=== PATIENT | male | born 1965 | race Caucasian/White ===

== ENCOUNTER 2019-09-11 13:50 | Inpatient (IN) | payer OTHER ==
[~2019-09-11 13:50] MED LIST: Calcium Chloride 1 GM/10 ML Abboject SYRINGE ONE; Cardioplegic Soln 1,000 ML BAG ONE; Dextrose 50% Abboject 50 ML SYRINGE ONE; Heparin 30,000 units/30 ml VIAL ONE; Heparin 5,000 UNITS/ML VIAL ONE; Iopamidol 370 76% 100 ML VIAL ONE; Lidocaine 1% PF 5 ML VIAL ONE; Norepinephrine 4 MG/4 ML VIAL ONE; PHENYLEPHRINE-NS 100 MCG/ML 10 ML SYRINGE ONE; PROPOFOL 200 MG/20 ML VIAL ONE; Papaverine 60 MG/2 ML VIAL ONE; Protamine Sulfate 50 MG/5 ML VIAL ONE; Rocuronium Bromide 10 MG/ML (10ML VIAL) ONE; Sodium Bicarb 50 MEQ/50 ML Abboject 8.4% SYRINGE ONE; Succinylcholine Chloride 20 MG/ML 10 ml SYRINGE FS ONE; Thrombin 5000 UNITS/5 ML VIAL ONE
[2019-09-11 14:11] LABS: #Basophils 0.1 thou/uL (0.0-0.2); #Eosinphils 0.1 thou/uL (0.0-0.7); #Lymphocytes 2.9 thou/uL (1.20-3.40); #Monocytes 1.7 thou/uL (0.11-0.59); #Neutrophils 9.7 thou/uL (1.40-6.50); %Basophils 0.7 % (0.0-1.0); %Eosinophils 0.5 % (0.0-10.0); %Lymphocytes 20.1 % (21.0-51.0); %Monocytes 11.7 % (0.0-10.0); Hemoglobin 14.9 g/dL (14.0-18.0); Mean Corpuscular Hemoglobin 30.5 pg (27.0-31.0); Mean Corpuscular Volume 92.5 fL (78.0-98.0); Mean Platelet Volume 10.1 fL (7.4-10.4); Platelet Count 195 thou/uL (130-400); RBC Distribution Width 12.8 % (11.5-14.5); Red Blood Cell (RBC) Count 4.87 mill/uL (4.70-6.10); White Blood Cell (WBC) Count 14.5 thou/uL (4.8-10.8)
[2019-09-11] MEDS ORDERED: Midazolam HCl 2 mg/2 ml Vial ONE ×2 (14:17→15:05)
[2019-09-11 14:18] LABS: INR-International Normal Ratio 1.3; Prothrombin Time 15.9 SEC (12.0-14.7)
[2019-09-11] MEDS ORDERED: Fentanyl 100 MCG/2 ML VIAL ONE ×2 (14:18→15:05)
--- NOTE | 2019-09-11 14:18 | RAD ---
Exam: Chest one view HISTORY:Chest pain Comparison: None FINDINGS: Cardiac silhouette: Normal Aorta: Unremarkable Pulmonary vessels: Normal Costophrenic angles: Clear LUNGS: Obscuration right heart border and right hemidiaphragm. Pneumothorax: None Osseous abnormalities: None IMPRESSION: 1. Obscuration the heart border and right hemidiaphragm likely representing a cardiac fat. Better int errogation with a 2 view chest radiograph is recommended
[2019-09-11 14:19] LABS: PTT 71.7 SEC (22.9-36.1)
[2019-09-11 14:32] LABS: ALT (SGPT) 26 U/L (8-55); AST (SGOT) 42 U/L (5-34); Albumin 3.6 g/dL (3.5-5.0); Alkaline Phosphatase 137 U/L (40-110); Anion Gap 15 mmol/L (10-20); BUN (Urea Nitrogen) 17 mg/dL (8.4-25.7); Bilirubin, Total 1.4 mg/dL (0.2-1.2); CK (CPK) 422 U/L (30-200); Calc. Creatinine Clearance 0 mL/min (70-130); Calcium 9.2 mg/dL (7.8-10.44); Carbon Dioxide 22 mmol/L (22-29); Chloride 103 mmol/L (98-107); Estimated GFR-MDRD 69; Globulin 3.1 g/dL (2.4-3.5); Glucose 106 mg/dL (70-105); Lipase 67 U/L (8-78); Potassium 3.8 mmol/L (3.5-5.1); Protein, Total 6.7 g/dL (6.0-8.3); Sodium 136 mmol/L (136-145)
[2019-09-11] MEDS ORDERED: DOPamine 400 MG/D5W 250 ML 250 ML ONE (14:40)
[2019-09-11] MEDS ORDERED: Albumin 5% 500 ML ONE (14:47)
[2019-09-11] MEDS ORDERED: Fentanyl 250 MCG/5 ML VIAL ONE (14:52)
[2019-09-11] MEDS ORDERED: Midazolam HCl 5 mg/5 ml Vial ONE ×2 (14:52→15:05)
[2019-09-11] MEDS ORDERED: Nitroglycerin 50 MG/250 ML BOT 250 ML ONE (14:53)
[2019-09-11] MEDS ORDERED: Famotidine/PF 20 mg/2ml Vial ONE (14:53)
[2019-09-11] MEDS ORDERED: Phenylephrine 10 MG/ML VIAL ONE (14:53)
[2019-09-11] MEDS ORDERED: Heparin 10,000 UNITS/1 ML VIAL ONE (15:00)
[2019-09-11 15:04] LABS: CKMB 7.4 ng/mL (0-6.6)
[2019-09-11] MEDS ORDERED: Dexmedetomidine 200 MCG/2 ML VIAL ONE (15:06)
[2019-09-11] MEDS ORDERED: Vecuronium 10 MG VIAL ONE (15:06)
--- NOTE | 2019-09-11 15:17 | HP ---
HISTORY OF PRESENT ILLNESS: Jaime Oropeza is a 54-year-old white male, who began to have onset of chest discomfort on 09/06. This lasted approximately 1 to 1-1/2 hours and was described as chest pressure with some radiation to the right arm and numbness in his left arm. This was accompanied by shortness of breath, diaphoresis, nausea , and vomiting. He then had 2-1/2 hours of discomfort on 09/07. On 09/08, he had approximately an hour. Yesterday, on 09/09, he states he really did not have much pain, and then today at 9:00 a.m., again had onset of the discomfort and has been continuous since that time. He went to [facility], and was found to have EKG changes, consistent with inferior STEMI. He was given aspirin and a bolus of heparin, started on heparin drip, sublingual nitroglycerin and nitroglycerin paste. He states that his discomfort has significantly improved, but is still present. PAST MEDICAL HISTORY: Hypertension and hypercholesterolemia. He states he was on medications for these in the past, but his physician moved and he has not taken any for a year. No history of diabetes. MEDICATIONS: None. ALLERGIES: NONE. 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 SOCIAL HISTORY: He smokes 1 pack per day. He does not drink alcohol. FAMILY HISTORY: Mother of myocardial infarction at age 42. Brothers had CABG and sister has had stent placement. REVIEW OF SYSTEMS: Otherwise unremarkable. PHYSICAL EXAMINATION: VITAL SIGNS: Blood pressure 132/80 and pulse of 60. HEENT: PERRL. NECK: Supple. CHEST: Clear. CARDIAC: S1 and S2 are normal without any S3, S4, or murmurs. Carotid upstrokes normal without bruits. ABDOMEN: Normal bowel sounds without tenderness or organomegaly. EXTREMITIES: No clubbing, cyanosis, or edema. NEUROLOGIC: Grossly intact. SKIN: Warm and dry. LABORATORY DATA: EKG reveals Q-waves in II, III, and F along with [address]-segment elevation. There is some downsloping of the ST segments in I and L. Lab work is pending. IMPRESSION: 1. Inferior ST elevation myocardial infarction. He does have Q-waves present, I imagine that he has probably had a stuttering infarction over the last 4 or 5 days. However, he continues to have chest pain at this time. 2. Hypertension, untreated. 3. Hypercholesterolemia, untreated. 4. Smoker. 5. Positive family history. 6. Status post nephrectomy, used for transplant in his sister. PLAN: The situation was discussed with the patient. It is recommended that he undergo emergent cardiac catheterization. Risks were discussed including , myocardial infarction, dye reaction, vascular injury, CVA, transfusion, limb loss, renal loss, etc. We also discussed stent placement with additional risk of , myocardial infarction, emergent CABG, restenosis, stent thrombosis, vessel perforation, etc. He has no history of gastrointestinal bleeding or stroke. He does not have any upcoming surgeries, and a drug-eluting stent will be placed if needed. He does state that he has a drug plan. Job ID: [id number] MTDD
--- NOTE | 2019-09-11 15:27 | CON ---
DATE OF CONSULTATION: HISTORY OF PRESENT ILLNESS: This is a 54-year-old gentleman with multiple medical problems and noncompliance with medications, who presented with a 3-day history of left scapular pain, arm pain, shoulder pain, and the chest pain. The patient initially thought it was related to something he ate 3 days ago, but the pain has persisted. Due to numbness in his left hand, he presented to an outlying emergency room today, where he was found to have ST-elevation inferior DE and transferred to [facility], where his initial troponin was 22, and his cardiac catheterization revealed extensive three-vessel disease. He has severe disease in LAD, diagonal, ramus, circumflex system prior to 2 small obtuse marginals and his right coronary artery is occluded at the ostium, filling faintly from [id number] collaterals with PDA filling in its midportion and a posterolateral filling faintly. His left ventricular systolic function is diminished with inferior akinesis. PAST MEDICAL HISTORY: Includes hypertension, not currently on medicines; dyslipidemia, not currently on medicines. He has no diabetes mellitus. SOCIAL HISTORY: He smokes a pack of cigarettes a day. ALLERGIES: NONE KNOWN. PAST SURGICAL HISTORY: Left inguinal hernia repair and donor nephrectomy. PHYSICAL EXAMINATION: GENERAL: He is alert and cooperative gentleman, overweight. No distress at this time. NECK: No carotid bruits. LUNGS: Clear to auscultation anteriorly. CARDIAC: Regular rate and rhythm. No murmurs. ABDOMEN: Obese and nontender. EXTREMITIES: He has a sheath in the right groin. Palpable left femoral and dorsalis pedis pulse and no palpable pedal pulses on the right. Cardiac catheterization with the above findings as well as a high-grade left common iliac artery stenosis with about a 50-mm pressure gradient across this. Potential targets include the LAD, ramus, OM something on the right and perhaps some circumflex vessels, although these vessels are not very large and I suspect, given the patient's weight and untreated hypertension that access to bypassable vessels may be poor on the circumflex despite the fact that it is 90% occluded in both branches. Plan at this time is for coronary artery bypass grafting emergently and informed consent has been obtained. Job ID: [id number]
[2019-09-11 16:10] LABS: Hemoglobin A1c 5.4 % (4.0-6.0)
[2019-09-11 16:22] LABS: Cardiac Risk 6.6 (Less than 4.5)
[2019-09-11] MEDS ORDERED: Bisacodyl 10 MG SUPP PR PRN (19:41)
[2019-09-11] MEDS ORDERED: Hetastarch 6% 500 ML 500 ML IVPB PRN (19:41)
[2019-09-11] MEDS ORDERED: Bisacodyl 5 MG TAB PO PRN (19:41)
[2019-09-11] MEDS ORDERED: niCARdipine 25 MG in Sodium Chloride 0.9% 250 ML 250 ML IVPB PRN (19:41)
[2019-09-11] MEDS ORDERED: Ondansetron PF 4 MG/2 ML Vial IVP PRN (19:41)
[2019-09-11] MEDS ORDERED: DOPamine 400 MG/D5W 250 ML 250 ML IVPB PRN (19:41)
[2019-09-11] MEDS ORDERED: Post-Op Insulin Drip Protocol IVPB ONE (19:41)
[2019-09-11] MEDS ORDERED: hydrALAZINE 20 MG/ML VIAL SLOW IVP PRN (19:41)
[2019-09-11] MEDS ORDERED: HYDROcodone/Acetaminophen 5/325 mg Tablet PO PRN (19:41)
[2019-09-11] MEDS ORDERED: Guaifenesin DM 100-10/5 ML UDCUP PO PRN (19:41)
[2019-09-11] MEDS ORDERED: Morphine 2 MG/ML SYRINGE SLOW IVP PRN ×2 (19:41→19:54)
[2019-09-11] MEDS ORDERED: Promethazine HCl 25 MG/ML VIAL IM PRN (19:41)
[2019-09-11] MEDS ORDERED: Nitroglycerin 50 MG/250 ML BOT 250 ML IVPB PRN (19:41)
[2019-09-11] MEDS ORDERED: Acetaminophen 325 MG TAB PO PRN (19:41)
[2019-09-11] MEDS ORDERED: Mag-Al 1200 mg/1200 mg/30 ML UDCUP PO PRN (19:41)
[2019-09-11] MEDS ORDERED: Fentanyl 100 MCG/2 ML VIAL SLOW IVP PRN ×2 (19:41)
[2019-09-11] MEDS ORDERED: Magnesium 2 GM/50 ML 2 GM in Premix Bag 1 BAG IVPB SCH (19:45)
[2019-09-11] MEDS ORDERED: Ventilator Sedation Protocol 1 EACH FS SCH (19:45)
[2019-09-11] MEDS ORDERED: Lorazepam 2 MG/ML VIAL SLOW IVP PRN (19:54)
[2019-09-11] MEDS ORDERED: Fentanyl BOLUS 250 ML IVPB PRN (19:54)
[2019-09-11] MEDS ORDERED: Propofol 1,000 MG/100 ML VIAL IV PRN (19:54)
[2019-09-11] MEDS ORDERED: Propofol BOLUS 1,000 MG/100 ML VIAL IV PRN (19:54)
[2019-09-11] MEDS ORDERED: DISCONTINUE PREVIOUS NARCOTIC PAIN MEDICATIONS AND BENZODIAZEPINES FS SCH (19:54)
[2019-09-11] MEDS ORDERED: Dextrose 5% in Water 1,000 ML IV PRN (19:55)
[2019-09-11] MEDS ORDERED: HUMULIN R 100 UNITS in Sodium Chloride 0.9% 100 ML IVPB SCH (19:55)
[2019-09-11] MEDS ORDERED: Dextrose 50% Abboject 50 ML SYRINGE SLOW IVP PRN (19:55)
[2019-09-11 20:01] LABS: Base Excess (BEa) -6.9 mEq/L (-2.0 to +3.0); CO2 Tension 39.4 mmHg (35.0-45.0); Calcium, Ionized 1.06 mmol/L (1.12-1.30); Carboxyhemoglobin (COHb) 2.2 gm% (0.0-3.0); Hemoglobin (Hb) 13.5 g/dL (14.0-18.0); O2 Tension (PaO2), arterial 147.5 mmHg (80.0-100.0); Potassium - ABG Lab 4.34 mmol/L (3.70-5.30)
[2019-09-11 20:10] LABS: Puncture Site ALINE
[2019-09-11] MEDS ORDERED: Sodium Bicarb 50 MEQ/50 ML Abboject 8.4% SYRINGE ONE (20:16)
[2019-09-11 20:26] LABS: INR-International Normal Ratio 1.4; PTT 24.7 SEC (22.9-36.1); Prothrombin Time 17.1 SEC (12.0-14.7)
[2019-09-11] MEDS: fentaNYL Citrate/PF 2,000 MCG in Sodium Chloride 0.9% 60 ML IV SCH (20:28)
--- NOTE | 2019-09-11 20:29 | RAD ---
PORTABLE CHEST: 09/11/19 INDICATIONS: Postop sternotomy. ET tube appears adequately positioned. Postop sternotomy changes are noted. Central line appears adeq uately positioned. Lungs appear clear of infiltrate. Vascular markings normal. IMPRESSION: Postop sternotomy. No acute lung process identified. POS: [facility]
[2019-09-11] MEDS: Famotidine/PF 20 mg/2ml Vial SLOW IVP SCH (20:33)
[2019-09-11] MEDS: Lactated Ringer's 1,000 ML IV SCH (20:33)
[2019-09-11 20:35] LABS: Anion Gap 15 mmol/L (10-20); BUN (Urea Nitrogen) 19 mg/dL (8.4-25.7); Calc. Creatinine Clearance 0 mL/min (70-130); Calcium 8.1 mg/dL (7.8-10.44); Carbon Dioxide 20 mmol/L (22-29); Chloride 108 mmol/L (98-107); Estimated GFR-MDRD 73; Glucose 149 mg/dL (70-105); Potassium 4.5 mmol/L (3.5-5.1); Sodium 138 mmol/L (136-145)
[2019-09-11] MEDS: Atorvastatin Calcium 10 MG TAB PO SCH (20:40)
[2019-09-11 20:41] LABS: Band 16 % (5-11); Hemoglobin 13.2 g/dL (14.0-18.0); Lymphocytes 10 % (21-51); MDiff Complete? YES; Mean Corpuscular HGB CONC 31.5 g/dL (32.0-36.0); Mean Corpuscular Hemoglobin 29.7 pg (27.0-31.0); Mean Corpuscular Volume 94.2 fL (78.0-98.0); Mean Platelet Volume 10.2 fL (7.4-10.4); Monocytes 5 % (0-10); Neutrophil 69 % (42-75); Platelet Count 181 thou/uL (130-400); Platelet Morphology Comment Appears Adequate; RBC Distribution Width 12.7 % (11.5-14.5); Red Blood Cell (RBC) Count 4.44 mill/uL (4.70-6.10); White Blood Cell (WBC) Count 31.9 thou/uL (4.8-10.8)
[2019-09-11] MEDS: Insulin Regular 300 UNITS/3 ML VIAL SC PRN (21:08)
[2019-09-11] MEDS: CEFAZOLIN 2 GM in Premix Bag 1 BAG IVPB SCH (21:11)
[2019-09-11] MEDS: Norepinephrine 8 MG/0.9% NS 250 ML IVPB PRN (21:12)
[2019-09-12] MEDS: Insulin Regular 300 UNITS/3 ML VIAL SC PRN ×5 (00:10→20:24)
[2019-09-12 03:43] LABS: Hemoglobin 14.3 g/dL (14.0-18.0)
[2019-09-12 03:59] LABS: Potassium 4.6 mmol/L (3.5-5.1)
[2019-09-12] MEDS: CEFAZOLIN 2 GM in Premix Bag 1 BAG IVPB SCH ×2 (06:07→14:30)
[2019-09-12 06:22] LABS: #Lymphocytes 2.2 thou/uL (1.20-3.40); #Monocytes 2.2 thou/uL (0.11-0.59); %Basophils 0.2 % (0.0-1.0); %Eosinophils 0.2 % (0.0-10.0); %Lymphocytes 10.4 % (21.0-51.0); %Monocytes 10.3 % (0.0-10.0); %Neutrophils 78.9 % (42.0-75.0); Hemoglobin 14.2 g/dL (14.0-18.0); Mean Corpuscular HGB CONC 31.8 g/dL (32.0-36.0); Mean Corpuscular Hemoglobin 29.8 pg (27.0-31.0); Mean Corpuscular Volume 93.6 fL (78.0-98.0); Mean Platelet Volume 10.4 fL (7.4-10.4); Platelet Count 188 thou/uL (130-400); RBC Distribution Width 12.9 % (11.5-14.5); Red Blood Cell (RBC) Count 4.77 mill/uL (4.70-6.10); White Blood Cell (WBC) Count 21.6 thou/uL (4.8-10.8)
--- NOTE | 2019-09-12 06:29 | OP ---
DATE OF PROCEDURE: 09/11/2019 PREOPERATIVE DIAGNOSIS: Inferior myocardial infarction. POSTOPERATIVE DIAGNOSIS: Inferior myocardial infarction. PROCEDURES PERFORMED: Coronary artery bypass graft x5 with left internal mammary artery to a 2 mm distal left anterior descending, saphenous vein good quality to a 1.5 mm diagonal, 1.25 to 1.5 mm ramus. Two obtuse marginal branches too small to graft. Right posterior lateral 1 mm right PDA 1.5 mm with thrombus in this vessel. DEPUTY CHIEF SHERIFF: Dr. Cisneros. TRANSFUSION: None. FINDINGS: The patient had infarcted inferior wall grossly on inspection with pallor interspersed with red areas. Vessels were all poor quality except for the diagonal in the LAD and not a reoperative candidate. DESCRIPTION OF PROCEDURE: After adequate anesthesia had been obtained, the patient was prepped and draped. An endovascular vein harvest of the left greater saphenous vein was started by Dr. Cisneros; however, this vessel was felt to be too small to utilize, an incision was made in the groin, dissected down for about 6 inches at which point, the vein became too small to accept the cannula. Right greater saphenous vein was then opened, harvested, and was a better quality vein. Following this, the wounds were closed in layers by Dr. Cisneros. I performed a median sternotomy harvesting the left internal mammary artery, which was divided distally after heparinization. Large thymus gland was removed to allow access into the mediastinum. Pericardium was opened. Aorta and right atrium cannulated and cardiopulmonary bypass begun. Aorta was cross-clamped and after a liter of cold [place] cardioplegic solution, the distal anastomosis were all performed. Cross-clamp was removed and the partial occluding clamp was placed and the ramus and the PDA vein grafts were performed on the aortic root. Following this, a partial occluding clamp was removed. The diagonal vein graft anastomosed to the side of the ramus vein graft about 2 cm from the aortic root and then the posterior lateral vein graft anastomosed to the PDA vein graft at the acute margin of the heart. Temporary atrial and ventricular pacing wires were placed and the patient was atrially paced. He was slowly weaned from cardiopulmonary bypass on moderate to high doses of Levophed with poor left ventricular systolic function on transesophageal echo. Following this, protamine was given systemically. Aortic cannulation site secured with a 4-0 Prolene suture. Mediastinal drains x2 were placed following which the sternum was reapproximated with #7 interrupted wire using vancomycin paste on the sternal edges, platelet rich blood and platelet poor plasma. Subcutaneous tissue and skin were closed in layers and the patient is to be taken to the ICU in critical condition. Job ID: [id number]
[2019-09-12 06:41] LABS: Anion Gap 13 mmol/L (10-20); BUN (Urea Nitrogen) 19 mg/dL (8.4-25.7); Calc. Creatinine Clearance 107 mL/min (70-130); Calcium 7.7 mg/dL (7.8-10.44); Carbon Dioxide 22 mmol/L (22-29); Chloride 111 mmol/L (98-107); Estimated GFR-MDRD 70; Glucose 151 mg/dL (70-105); Potassium 4.7 mmol/L (3.5-5.1); Sodium 141 mmol/L (136-145)
--- NOTE | 2019-09-12 08:37 | PRG ---
DATE OF SERVICE: 09/12/2019 SUBJECTIVE: The patient is now postoperative day #1 from emergency multivessel grafting. He remains on the ventilator with O2 sats about 95% on 40% O2. His chest x-ray shows right upper lobe mucous plugging probably. His hemoglobin is 13. His creatinine is 1.1. OBJECTIVE: GENERAL: He is resting comfortably on sedation, fentanyl and propofol, but is wide awake when questioned. VITAL SIGNS: His blood pressure is running about 110 on nitroglycerin. His CVP is 12. Urine output has been 50-60 an hour and he does have a solitary kidney. His chest tube output is minimal. PLAN: We will ask Pulmonary to see him this morning in regard to his right upper lobe mucous plugging and consideration may be given extubation later today. We will maintain his drugs as he is stable with this regimen Job ID: [id number]
--- NOTE | 2019-09-12 08:55 | RAD ---
CHEST 1 VIEW: INDICATION: History of open heart surgery. COMPARISON: Prior exam dated 09/11/2019. FINDINGS: Since the comparison examination, there is interval increased opacification of the right upper lobe s uspicious for right upper lobe collapse. Cardiomegaly persists. Right subclavian vascular congestio n, mediastinal drain, and ET tube is unchanged. Small right pleural effusion persists. No definite pneumothorax is evident. The left lung is clear. IMPRESSION: 1. Worsening opacity in the right upper lobe suspicious for partial right upper lobe collapse. Anup mmend consideration for suctioning. Recommend repeat radiograph. 2. Persistent small right pleural effusion. 3. Stable cardiomegaly. 4. Stable tubes and lines. POS: [facility]
[2019-09-12] MEDS: fentaNYL Citrate/PF 2,000 MCG in Sodium Chloride 0.9% 60 ML IV SCH (08:58)
[2019-09-12] MEDS: Famotidine/PF 20 mg/2ml Vial SLOW IVP SCH ×2 (09:26→21:06)
[2019-09-12] MEDS: Aspirin 325 MG TAB PO SCH (09:26)
[2019-09-12] MEDS: Lactated Ringer's 1,000 ML IV SCH (09:29)
[2019-09-12 09:35] LABS: Troponin I 26.168 ng/mL (< 0.028)
--- NOTE | 2019-09-12 14:26 | EKG ---
Test Reason : CP-STEMI Blood Pressure : / mmHG Vent. Rate : 089 BPM Atrial Rate : 089 BPM P-R Int : 146 ms QRS Dur : 090 ms QT Int : 348 ms P-R-T Axes : 058 018 077 degrees QTc Int : 423 ms Sinus rhythm with occasional Premature ventricular complexes Inferior infarct , possibly acute ACUTE CA / STEMI Consider right ventricular involvement in acute inferior infarct Abnormal ECG Confirmed by MARCOS AVALOS DO ([id number]), tape editor JAYCEE JOSEPH ([id number]) on 09/12/2019 2:25:28 PM Referred By: Confirmed By:MARCOS AVALOS DO
[2019-09-12] MEDS: Norepinephrine 8 MG/0.9% NS 250 ML IVPB PRN (15:51)
[2019-09-12] MEDS: HYDROcodone/Acetaminophen 5/325 mg Tablet PO PRN (19:37)
--- NOTE | 2019-09-12 20:55 | CON ---
DATE OF CONSULTATION: 09/12/2019 HISTORY OF PRESENT ILLNESS: Mr. Oropeza is a 54-year-old male, who underwent coronary artery bypass grafting. He had left upper lobe atelectasis on his chest radiograph, so I was consulted. He is mechanically ventilated after surgery. PAST MEDICAL HISTORY: Remarkable for: 1. Hypertension, not taking medicines. 2. Tobacco, smoking a pack a day. 3. History of an inguinal hernia repair. 4. History of nephrectomy as a kidney donor. REVIEW OF SYSTEMS: Otherwise, not obtainable since he is intubated. PHYSICAL EXAMINATION: VITAL SIGNS: Heart rate 79, blood pressure 141/78, respiratory rate 25, and blood pressure 126/69. HEAD AND NECK: Unremarkable. GENERAL: He is awake, moving all of his extremities to command. LUNGS: Clear. HEART: Regular rhythm. S1, S2 are normal. ABDOMEN: Soft and nontender. EXTREMITIES: Without clubbing, cyanosis, or edema. LABORATORY DATA: White count 21.6, hemoglobin 14.2, and platelets 188. Electrolytes are unremarkable. Glucoses have been in the 140s to 150s. PH after surgery last night 7.3. CO2 of 39, and PO2 of 147. IMPRESSION: 1. Status post coronary artery bypass grafting. 2. ?Mucus plug in the right upper lobe. PLAN: Fiberoptic bronchoscopy and extubation afterwards. This is a 70 min consult with greater than 50% of the time spent on the unit with coordination of care excluding any procedures. Job ID: [id number] MTDD
[2019-09-12] MEDS: Atorvastatin Calcium 10 MG TAB PO SCH (21:06)
[2019-09-13] MEDS: Insulin Regular 300 UNITS/3 ML VIAL SC PRN (00:25)
[2019-09-13 04:34] LABS: #Basophils 0.1 thou/uL (0.0-0.2); #Lymphocytes 2.4 thou/uL (1.20-3.40); #Monocytes 1.9 thou/uL (0.11-0.59); #Neutrophils 11.4 thou/uL (1.40-6.50); %Basophils 0.4 % (0.0-1.0); %Eosinophils 0.2 % (0.0-10.0); %Lymphocytes 15.5 % (21.0-51.0); %Monocytes 11.7 % (0.0-10.0); %Neutrophils 72.2 % (42.0-75.0); Hemoglobin 12.5 g/dL (14.0-18.0); Mean Corpuscular HGB CONC 32.1 g/dL (32.0-36.0); Mean Corpuscular Hemoglobin 30.4 pg (27.0-31.0); Mean Corpuscular Volume 94.7 fL (78.0-98.0); Mean Platelet Volume 10.3 fL (7.4-10.4); Platelet Count 151 thou/uL (130-400); Red Blood Cell (RBC) Count 4.12 mill/uL (4.70-6.10); White Blood Cell (WBC) Count 15.8 thou/uL (4.8-10.8)
[2019-09-13 04:55] LABS: Anion Gap 10 mmol/L (10-20); BUN (Urea Nitrogen) 18 mg/dL (8.4-25.7); Calc. Creatinine Clearance 118 mL/min (70-130); Calcium 8.2 mg/dL (7.8-10.44); Carbon Dioxide 26 mmol/L (22-29); Chloride 107 mmol/L (98-107); Estimated GFR-MDRD 79; Glucose 131 mg/dL (70-105); Potassium 4.4 mmol/L (3.5-5.1); Sodium 139 mmol/L (136-145)
[2019-09-13 05:02] LABS: Critical Call Chem Troponin I RESULT DECREASING; Troponin I 17.665 ng/mL (< 0.028)
--- NOTE | 2019-09-13 08:04 | RAD ---
RADIOGRAPH CHEST 1 VIEW: DATE: 09/13/2019 TIME: 5:50 AM HISTORY: 54-year-old male status post open heart surgery COMPARISON: 09/12/2019 4:27 AM FINDINGS: The right upper lobe atelectasis has resolved. The right apex is now clear. Right subclavian central venous catheter remains. Endotracheal tube is no longer visualized. No pulmonary edema. No pneumothorax identified. IMPRESSION: 1. Interval resolution of right upper lobe atelectasis. 2. Status post extubation.
[2019-09-13] MEDS: Aspirin 325 MG TAB PO SCH (08:12)
[2019-09-13] MEDS: HYDROcodone/Acetaminophen 5/325 mg Tablet PO PRN ×2 (08:12→13:12)
[2019-09-13] MEDS: Lactated Ringer's 1,000 ML IV SCH (08:14)
[2019-09-13] MEDS: Famotidine/PF 20 mg/2ml Vial SLOW IVP SCH (08:14)
[2019-09-13] MEDS ORDERED: Prevnar 13-Val Conj/PF 0.5 ML SYRINGE IM ONE (09:00)
--- NOTE | 2019-09-13 10:54 | PDOC.CPN ---
- Subjective Date: 09/13/19 Time: 10:52 Interval history: No complaints. Pain well controlled. Went into afib but rate controlled mid morning. - Review of Systems General: denies: fever/chills, weight/appetite/sleep changes, night sweats, fatigue Respiratory: denies: cough, congestion, shortness of breath, exercise intolerance Cardiovascular: denies: chest pain, palpitation, edema, paroxysmal nocturnal dyspnea, orthopnea Gastrointestinal: denies: nausea, vomiting, diarrhea, constipation, abd pain, GI bleeding Musculoskeletal: denies: pain, tenderness, stiffness, swelling, arthritis/ arthralgias Neurological: denies: numbness, syncope, seizure, weakness - Objective Allergies/Adverse Reactions: Allergies Allergy/AdvReac Type Severity Reaction Status Date / Time No Known Allergies Allergy Verified 09/11/19 20:56 Visit Medications: Current Medications Acetaminophen (Tylenol) 650 mg PO Q6H PRN PRN Reason: Headache/Fever/Mild Pain (1-3) Hydrocodone Bitart/Acetaminophen ([place] 5/325) 1 tab PO Q4H PRN PRN Reason: Moderate Pain (4-6) Hydrocodone Bitart/Acetaminophen ([place] 5/325) 2 tab PO Q4H PRN PRN Reason: Severe Pain (7-10) Last Admin: 09/13/19 08:12 Dose: 2 tab Al Hydroxide/Mg Hydroxide (Maalox) 30 ml PO Q4H PRN PRN Reason: Indigestion Albuterol/Ipratropium (Duoneb) 3 ml NEB [id number] [facility] Last Admin: 09/13/19 06:56 Dose: 3 ml Albuterol/Ipratropium (Duoneb) 3 ml NEB Q6H PRN PRN Reason: SHORTNESS OF BREATH Aspirin (Aspirin) 325 mg PO DAILY [facility] Last Admin: 09/13/19 08:12 Dose: 325 mg Atorvastatin Calcium (Lipitor) 40 mg PO HS [facility] Bisacodyl (Dulcolax) 10 mg PO Q12H PRN PRN Reason: Constipation Bisacodyl (Dulcolax) 10 mg MT Q12H PRN PRN Reason: Constipation Carvedilol (Coreg) 3.125 mg PO BID-[facility] Fentanyl (Sublimaze) 25 mcg SLOW IVP Q2H PRN PRN Reason: Moderate Pain (4-6) Stop: 09/13/19 19:31 Fentanyl (Sublimaze) 50 mcg SLOW IVP Q2H PRN PRN Reason: Severe Pain (7-10) Stop: 09/13/19 19:31 Guaifenesin/Dextromethorphan (Robitussin Dm) 15 ml PO Q4H PRN PRN Reason: Cough Hydralazine HCl (Apresoline) 10 mg SLOW IVP Q6H PRN PRN Reason: To Maintain SBP< 140mmHG Fentanyl Citrate 2,000 mcg/ (Sodium Chloride) 100 mls @ 0 mls/hr IV INF [facility]; Protocol Stop: 10/11/19 19:54 Last Admin: 09/12/19 08:58 Dose: 100 mls Fentanyl Citrate (Fentanyl Bolus) 250 mls @ 0 mls/hr IVPB PRN PRN PRN Reason: Breakthrough pain/agitation Stop: 10/11/19 19:54 Amiodarone HCl 450 mg/Miscellaneous Medication 1 each/ Dextrose/Water 259 mls @ 0 mls/hr IVPB INF [facility]; Protocol Discontinue Previous Narcotic Pain Medications And Benzodiazepines 1 each FS .ONE [facility] Stop: 10/11/19 19:54 Ondansetron HCl (Zofran) 4 mg IVP Q6H PRN PRN Reason: Nausea/Vomiting Pantoprazole Sodium (Protonix) 40 mg PO DAILY [facility] Promethazine HCl (Phenergan) 6.25 mg IM Q4H PRN PRN Reason: Nausea/Vomiting Vital Signs & Weight: Vital Signs Temp Pulse Resp Pulse Ox 09/13/19 08:00 99.3 F 09/13/19 06:58 93 L 09/13/19 06:56 93 28 H 93 L 09/13/19 01:04 89 20 91 L 09/13/19 00:00 97.9 F Admit Weight 216 lb Weight 221 lb 12.56 oz - Physical Exam General: alert & oriented x3 HEENT: mucus membranes moist Neck: supple neck Cardiac: irregularly regular Lungs: normal breath sounds Neuro: no lateralizing findings Abdomen: active bowel sounds Extremities: 1+ LE edema Skin: clear Musculoskeletal: no pain - Labs Result Diagrams: 09/13/19 04:24 09/13/19 04:24 Troponin/CKMB CK-MB (CK-2) 7.4 ng/mL (0-6.6) H* 09/11/19 13:56 Troponin I 17.665 ng/mL (< 0.028) H* 09/13/19 04:24 - Telemetry Supraventricular conduction: atrial fibrillation - Assessment/Plan Assessment/Plan: 1. Acute NC 2. Multivessel CAD 3. S/P CABG 4. Post op afib PLAN: - Will start amiodarone drip - Currently rate controlled - Continue ASA/statin and low dose coreg - ACEI tomorrow if BP allows. - PT as tolerated.
[2019-09-13] MEDS: Amiodarone 450 MG, Admixture Fee 1 EACH in Dextrose 5% in Water 250 ML IVPB SCH ×2 (11:00→17:42)
--- NOTE | 2019-09-13 12:34 | PRG ---
DATE OF SERVICE: 09/13/2019 SUBJECTIVE: Jaime Oropeza has no complaints except some numbness over the lateral aspect of his right thigh. I suspect this is related to the softness of the bed and his referred discomfort from his back. He has no discomfort in the area of his vein graft sites medially. OBJECTIVE: GENERAL: He is in no distress. VITAL SIGNS: Heart rate is in the 70s, blood pressure 101/64, respiratory rate 22, oximetry is 92. LUNGS: Clear. HEART: Regular rhythm. ABDOMEN: Soft. EXTREMITIES: Without edema. IMPRESSION AND PLAN: 1. Status post coronary artery bypass grafting. 2. Right thigh numbness, ? related to nerve compression in his low back. 3. Status post bronchoscopy for right upper lobe atelectasis, resolved on today's radiograph. We will continue to follow. He is clinically stable. Job ID: [id number]
[2019-09-13] MEDS: Carvedilol 3.125 MG TAB PO SCH (13:17)
[2019-09-13] MEDS: Atorvastatin Calcium 10 MG TAB PO SCH (20:17)
[2019-09-14 04:38] LABS: Anion Gap 11 mmol/L (10-20); BUN (Urea Nitrogen) 17 mg/dL (8.4-25.7); Calc. Creatinine Clearance 134 mL/min (70-130); Calcium 8.4 mg/dL (7.8-10.44); Carbon Dioxide 26 mmol/L (22-29); Chloride 101 mmol/L (98-107); Estimated GFR-MDRD 88; Glucose 105 mg/dL (70-105); Potassium 4.3 mmol/L (3.5-5.1); Sodium 134 mmol/L (136-145)
--- NOTE | 2019-09-14 05:13 | OP ---
DATE OF PROCEDURE: 09/12/2019 PROCEDURE: Fiberoptic bronchoscopy. DESCRIPTION OF PROCEDURE: The patient was sedated with propofol. Bronchoscope was introduced via the endotracheal tube. Clear mucus was seen at the end of the endotracheal tube. The right lower lobe, right middle lobe, right upper lobe, left lower lobe, and left upper lobe were all well visualized. No endobronchial lesions were seen. No mucus plugs were identified. Once he awakened, recommended extubation after the procedure. He tolerated the procedure well. Job ID: [id number]
[2019-09-14] MEDS ORDERED: Carvedilol 6.25 MG TAB PO SCH (09:00)
[2019-09-14] MEDS ORDERED: Zolpidem Tartrate 5 MG TAB PO PRN (09:35)
[2019-09-14] MEDS ORDERED: Bisacodyl 5 MG TAB PO PRN (09:35)
[2019-09-14] MEDS ORDERED: Mag-Al 1200 mg/1200 mg/30 ML UDCUP PO PRN (09:35)
[2019-09-14] MEDS ORDERED: Artificial Tears 18 DROP/0.9 ML EA EYE PRN (09:35)
[2019-09-14] MEDS ORDERED: Milk Of Magnesia 30 ML UDCUP PO PRN (09:35)
[2019-09-14] MEDS ORDERED: Guaifenesin DM 100-10/5 ML UDCUP PO PRN (09:35)
[2019-09-14] MEDS ORDERED: Nitroglycerin 0.4 MG TAB (25 Tab Bottle) SL PRN (09:35)
[2019-09-14] MEDS ORDERED: diphenhydrAMINE 25 MG CAP PO PRN (09:35)
[2019-09-14] MEDS ORDERED: Mineral Oil ENEMA PR PRN (09:35)
[2019-09-14] MEDS ORDERED: Bisacodyl 10 MG SUPP PR PRN (09:35)
[2019-09-14] MEDS ORDERED: Furosemide 40 MG TAB PO SCH (09:45)
[2019-09-14] MEDS: HYDROcodone/Acetaminophen 5/325 mg Tablet PO PRN (09:53)
[2019-09-14] MEDS: Aspirin 325 MG TAB PO SCH (09:55)
[2019-09-14] MEDS: Amiodarone 450 MG, Admixture Fee 1 EACH in Dextrose 5% in Water 250 ML IVPB SCH (09:57)
--- NOTE | 2019-09-14 10:26 | PDOC.CPN ---
- Subjective Date: 09/14/19 Time: 10:24 Interval history: Doing well. Working with PT. Passing gas but no BM yet. - Review of Systems General: denies: fever/chills, weight/appetite/sleep changes, night sweats, fatigue Respiratory: denies: cough, congestion, shortness of breath, exercise intolerance Cardiovascular: reports: edema. denies: chest pain, palpitation, paroxysmal nocturnal dyspnea, orthopnea Gastrointestinal: denies: nausea, vomiting, diarrhea, constipation, abd pain, GI bleeding Musculoskeletal: reports: pain. denies: tenderness, stiffness, swelling, arthritis/arthralgias Neurological: denies: numbness, syncope, seizure, weakness - Objective Allergies/Adverse Reactions: Allergies Allergy/AdvReac Type Severity Reaction Status Date / Time No Known Allergies Allergy Verified 09/11/19 20:56 Visit Medications: Current Medications Acetaminophen (Tylenol) 650 mg PO Q6H PRN PRN Reason: Headache/Fever/Mild Pain (1-3) Hydrocodone Bitart/Acetaminophen ([place] 5/325) 1 tab PO Q4H PRN PRN Reason: Moderate Pain (4-6) Last Admin: 09/13/19 21:58 Dose: 1 tab Hydrocodone Bitart/Acetaminophen ([place] 5/325) 2 tab PO Q4H PRN PRN Reason: Severe Pain (7-10) Last Admin: 09/14/19 09:53 Dose: 2 tab Al Hydroxide/Mg Hydroxide (Maalox) 30 ml PO Q4H PRN PRN Reason: Indigestion Albuterol/Ipratropium (Duoneb) 3 ml NEB [id number] Last Admin: 09/14/19 07:19 Dose: 3 ml Albuterol/Ipratropium (Duoneb) 3 ml NEB Q6H PRN PRN Reason: SHORTNESS OF BREATH Artificial Tears (Tears Naturale) 1 drop EA EYE PRN PRN PRN Reason: Dry Eyes Aspirin (Aspirin) 325 mg PO DAILY [facility] Last Admin: 09/14/19 09:55 Dose: 325 mg Atorvastatin Calcium (Lipitor) 40 mg PO HS [facility] Last Admin: 09/13/19 20:17 Dose: 40 mg Bisacodyl (Dulcolax) 10 mg PO Q12H PRN PRN Reason: Constipation Bisacodyl (Dulcolax) 10 mg PA Q12H PRN PRN Reason: Constipation Carvedilol (Coreg) 6.25 mg PO BID-WM [facility] Carvedilol (Coreg) 6.25 mg PO NOW [facility] Stop: 09/14/19 12:00 Last Admin: 09/14/19 09:54 Dose: 6.25 mg Diphenhydramine HCl (Benadryl) 25 mg PO Q6H PRN PRN Reason: Itching & Insomnia or Jaswinder Travis Furosemide (Lasix) 40 mg PO DAILY [facility] Furosemide (Lasix) 40 mg PO NOW [facility] Stop: 09/14/19 11:45 Last Admin: 09/14/19 09:59 Dose: 40 mg Guaifenesin/Dextromethorphan (Robitussin Dm) 15 ml PO Q4H PRN PRN Reason: Cough Hydralazine HCl (Apresoline) 10 mg SLOW IVP Q6H PRN PRN Reason: To Maintain SBP< 140mmHG Fentanyl Citrate 2,000 mcg/ (Sodium Chloride) 100 mls @ 0 mls/hr IV INF [facility]; Protocol Stop: 10/11/19 19:54 Last Admin: 09/12/19 08:58 Dose: 100 mls Fentanyl Citrate (Fentanyl Bolus) 250 mls @ 0 mls/hr IVPB PRN PRN PRN Reason: Breakthrough pain/agitation Stop: 10/11/19 19:54 Amiodarone HCl 450 mg/Miscellaneous Medication 1 each/ Dextrose/Water 259 mls @ 0 mls/hr IVPB INF [facility]; Protocol Last Admin: 09/14/19 09:57 Dose: 259 mls Magnesium Hydroxide (Milk Of Magnesium) 30 ml PO Q12H PRN PRN Reason: Constipation Mineral Oil (Fleet Mineral Oil) 133 ml PA DAILYPRN PRN PRN Reason: Constipation Nitroglycerin (Nitrostat) 0.4 mg SL Q5MIN PRN PRN Reason: Chest Pain Discontinue Previous Narcotic Pain Medications And Benzodiazepines 1 each FS .ONE [facility] Stop: 10/11/19 19:54 Ondansetron HCl (Zofran) 4 mg IVP Q6H PRN PRN Reason: Nausea/Vomiting Pantoprazole Sodium (Protonix) 40 mg PO DAILY [facility] Last Admin: 09/14/19 09:55 Dose: 40 mg Potassium Chloride (Klor-Con 10) 10 meq PO QAM-WM [facility] Promethazine HCl (Phenergan) 6.25 mg IM Q4H PRN PRN Reason: Nausea/Vomiting Zolpidem Tartrate (Ambien) 5 mg PO HSPRN PRN PRN Reason: Insomnia Vital Signs & Weight: Vital Signs Temp Pulse Resp BP Pulse Ox 09/14/19 09:54 128/67 09/14/19 07:19 77 24 H 90 L 09/14/19 07:18 90 L 09/14/19 04:00 98.3 F 09/14/19 01:35 79 17 96 09/14/19 00:00 97.9 F Admit Weight 216 lb Weight 221 lb 12.56 oz - Physical Exam General: alert & oriented x3 HEENT: mucus membranes moist Neck: supple neck Cardiac: irregularly regular Lungs: clear to auscultation Neuro: grossly intact Abdomen: active bowel sounds Extremities: 1+ LE edema Skin: clear Musculoskeletal: no pain - Labs Result Diagrams: 09/13/19 04:24 09/14/19 04:05 Troponin/CKMB CK-MB (CK-2) 7.4 ng/mL (0-6.6) H* 09/11/19 13:56 Troponin I 17.665 ng/mL (< 0.028) H* 09/13/19 04:24 - Telemetry Supraventricular conduction: atrial fibrillation - Assessment/Plan Assessment/Plan: 1. Acute RI 2. Multivessel CAD 3. S/P CABG 4. Post op afib PLAN: - Will start amiodarone drip - Currently rate controlled - Continue ASA/statin and coreg - Will add low dose ACEI. - Will switch to amiodarone PO. - Increase PT as tolerated.
[2019-09-14] MEDS ORDERED: Amiodarone 200 MG TAB PO SCH (10:30)
[2019-09-14] MEDS: Carvedilol 3.125 MG TAB PO SCH (12:11)
[2019-09-14] MEDS: Carvedilol 6.25 MG TAB PO SCH (16:54)
--- NOTE | 2019-09-14 18:59 | PRG ---
DATE OF SERVICE: 09/14/2019 SUBJECTIVE: Jaime Oropeza is in no distress. He had no leg complaints today. He said when he sat up in a chair, his lateral right thigh felt numb. It went away when he got back in bed. I suspect this is related to a low back issue. OBJECTIVE: VITAL SIGNS: He is afebrile, heart rate 66, blood pressure 105/61, respiratory rate 16, oximetry is 97% on room air. LUNGS: Clear. HEART: Regular rhythm. ABDOMEN: Soft. EXTREMITIES: Without edema. His incisions all look good. LABORATORY DATA: Sodium 134, potassium 4.3, chloride 101, bicarb 26, BUN 17, creatinine 0.9. IMPRESSION: 1. Atelectasis of the right upper lobe after bypass surgery, resolved. 2. Status post coronary artery bypass grafting. 3. Probable low back discomfort creating dysesthesias in his right thigh. 4. Atrial fibrillation postoperatively. Amiodarone was started today. Stable to move out of Critical Care in my opinion. Job ID: [id number]
[2019-09-14] MEDS: Atorvastatin Calcium 10 MG TAB PO SCH (20:31)
[2019-09-14] MEDS: Amiodarone 200 MG TAB PO SCH (20:32)
[2019-09-15] MEDS: Lisinopril 2.5 MG TAB PO SCH (09:30)
[2019-09-15] MEDS: Carvedilol 6.25 MG TAB PO SCH ×2 (09:30→19:30)
[2019-09-15] MEDS: Aspirin 325 MG TAB PO SCH (09:30)
[2019-09-15] MEDS: Potassium Chloride 10 MEQ TAB PO SCH (09:30)
[2019-09-15] MEDS: Furosemide 40 MG TAB PO SCH (09:30)
[2019-09-15] MEDS: Amiodarone 200 MG TAB PO SCH ×2 (09:31→20:19)
[2019-09-15 14:17] VITALS: BMI 33.5
[2019-09-15] MEDS: Atorvastatin Calcium 40 MG TAB PO SCH (20:19)
[2019-09-16] MEDS ORDERED: Carvedilol 6.25 MG TAB PO SCH (07:27)
[2019-09-16] MEDS: Aspirin 325 MG TAB PO SCH (08:39)
[2019-09-16] MEDS: Carvedilol 3.125 MG TAB PO SCH ×2 (08:39→16:47)
[2019-09-16] MEDS: Potassium Chloride 10 MEQ TAB PO SCH (08:39)
[2019-09-16] MEDS: Amiodarone 200 MG TAB PO SCH ×2 (08:39→21:21)
[2019-09-16] MEDS: Lisinopril 2.5 MG TAB PO SCH (08:39)
[2019-09-16] MEDS: Furosemide 40 MG TAB PO SCH (09:56)
[2019-09-16] MEDS ORDERED: Sodium Chloride 0.9% 500 ML IV SCH (13:30)
--- NOTE | 2019-09-16 16:31 | PRG ---
DATE OF SERVICE: 09/16/2019 SUBJECTIVE: Jaime Oropeza is in no distress. He got a little dizzy, he said when he was ambulating, but he completed the walk with therapy. OBJECTIVE: VITAL SIGNS: His heart rate is 60, respiratory rate 16, oximetry is 98% on 2 L. He is 94% on room air this morning. Blood pressure 93/54. LUNGS: Unchanged. HEART: Unchanged. ABDOMEN: Unchanged. LABORATORY DATA: No new lab today. IMPRESSION: 1. Status post coronary artery bypass grafting. 2. Status post right upper lobe atelectasis secondary to mucus plug. Overall, he is stable. We will sign off. Job ID: [id number]
[2019-09-16] MEDS: Atorvastatin Calcium 40 MG TAB PO SCH (21:21)
[2019-09-17] MEDS ORDERED: Furosemide 40 MG TAB PO SCH (09:00)
--- NOTE | 2019-09-17 09:25 | EKG ---
Test Reason : POST OP Blood Pressure : / mmHG Vent. Rate : 092 BPM Atrial Rate : 092 BPM P-R Int : 182 ms QRS Dur : 086 ms QT Int : 392 ms P-R-T Axes : 074 035 086 degrees QTc Int : 484 ms Atrial paced ventricular sensed rhythm with occasional Ventricular undersensing Sinus rhythm with marked sinus arrhythmia with frequent Premature ventricular complexes Possible Left atrial enlargement Inferior infarct , possibly acute ACUTE NM / STEMI Abnormal ECG No previous ECGs available Confirmed by DR. Jimmy HONEYCUTT ([id number]) on 09/17/2019 9:24:45 AM Referred By: NATHALIA Confirmed By:DR. Jimmy HONEYCUTT
--- NOTE | 2019-09-17 09:27 | EKG ---
Test Reason : Blood Pressure : / mmHG Vent. Rate : 081 BPM Atrial Rate : 220 BPM P-R Int : 000 ms QRS Dur : 088 ms QT Int : 362 ms P-R-T Axes : 000 014 064 degrees QTc Int : 420 ms Atrial fibrillation Inferior infarct (cited on or before 11-SEP-2019) Abnormal ECG When compared with ECG of 11-SEP-2019 19:52, (Unconfirmed) Atrial fibrillation has replaced Sinus rhythm Serial changes of Inferior infarct Present Confirmed by DR. Jimmy HONEYCUTT ([id number]) on 09/17/2019 9:27:32 AM Referred By: ABELINO Confirmed By:DR. Jimmy HONEYCUTT
[2019-09-17] MEDS: Carvedilol 3.125 MG TAB PO SCH ×2 (09:50→18:00)
[2019-09-17] MEDS: Potassium Chloride 10 MEQ TAB PO SCH (09:51)
[2019-09-17] MEDS: Aspirin 325 MG TAB PO SCH (09:51)
[2019-09-17] MEDS: Amiodarone 200 MG TAB PO SCH (09:52)
[2019-09-17 15:48] VITALS: BP 109/58; TEMP 98.5
--- NOTE | 2019-09-18 08:24 | DIS ---
DATE OF ADMISSION: 09/11/2019 DATE OF DISCHARGE: 09/17/2019 HOSPITAL COURSE: The patient was admitted on 09/[address] Tenorio with an acute inferior ID that actually probably had been ongoing for several days before the patient presented to the hospital. His initial troponins were in the 25 range. After arriving in the [employer] and having complete occlusion of the right coronary artery, he was taken emergently to the operating room, where he underwent five-vessel bypass grafting. Overall, his coronary targets were quite poor quality with a URIBE to a good LAD. 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 Postoperatively, he required Levophed for a couple of days and then progressed slowly. He will be discharged home on Coreg 3.125 b.i.d., Lasix 40 daily x10 days, amiodarone in a tapering dose per Dr. Tenorio. He will also be placed on an aspirin a day and atorvastatin 40 a day and [place] 5. He will probably be placed on an OMAR inhibitor as an outpatient as blood pressure allows with the current blood pressure about 100 to 110. His ejection fraction on echo on the day of discharge was 50%. Discharge and followup instructions have been given including smoking cessation. Job ID: [id number]
[2019-09-28] MEDS ORDERED: Amiodarone 200 MG TAB PO SCH (21:00)
[2019-10-13] MEDS ORDERED: Amiodarone 200 MG TAB PO SCH (09:00)
== END 2019-09-17 17:53 | disposition home or self-care (01) | DRG 234 ==
LOC: ERS 13:50 → CCU 14:06 → CCL 14:45 → CCU 16:41 → 2NO 09-14 11:38
PROVIDERS: ADMIT Internal Medicine Cardiovascular Disease; ATTEND Internal Medicine Cardiovascular Disease
PROC: 02100Z9 Bypass Coronary Artery, One Artery from Left Internal Mammary, Open Approach (ICD-10-PCS; principal; 2019-09-11)
PROC: 4A023N7 Measurement of Cardiac Sampling and Pressure, Left Heart, Percutaneous Approach (ICD-10-PCS; 2019-09-11)
PROC: 021309W Bypass Coronary Artery, Four or More Arteries from Aorta with Autologous Venous Tissue, Open Approach (ICD-10-PCS; 2019-09-11)
PROC: 06BQ4ZZ Excision of Left Saphenous Vein, Percutaneous Endoscopic Approach (ICD-10-PCS; 2019-09-11)
PROC: 5A1221Z Performance of Cardiac Output, Continuous (ICD-10-PCS; 2019-09-11)
PROC: B2111ZZ Fluoroscopy of Multiple Coronary Arteries using Low Osmolar Contrast (ICD-10-PCS; 2019-09-11)
PROC: B2151ZZ Fluoroscopy of Left Heart using Low Osmolar Contrast (ICD-10-PCS; 2019-09-11)
PROC: 5A1935Z Respiratory Ventilation, Less than 24 Consecutive Hours (ICD-10-PCS; 2019-09-11)
PROC: 0BJ08ZZ Inspection of Tracheobronchial Tree, Via Natural or Artificial Opening Endoscopic (ICD-10-PCS; 2019-09-12)
DX: I21.19 ST elevation (STEMI) myocardial infarction involving other coronary artery of inferior wall (principal); J98.11 Atelectasis; I47.1 Supraventricular tachycardia; Q60.0 Renal agenesis, unilateral; I25.10 Atherosclerotic heart disease of native coronary artery without angina pectoris; I10 Essential (primary) hypertension; F17.210 Nicotine dependence, cigarettes, uncomplicated; E78.00 Pure hypercholesterolemia, unspecified; I48.91 Unspecified atrial fibrillation; Z91.14 Patient's other noncompliance with medication regimen; Z79.01 Long term (current) use of anticoagulants
CPT/HCPCS: 36415; 36416; 36430; 71045; 80048; 80053; 80061; 82550; 82553; 82805; 83036; 83690; 84484; 85025; 85347; 85610; 85730; 86850; 86900; 86901; 93005; 93010; 93306; 93458; 93798; 94002; 94640; 99152; C1769; G0278; J0282; J0690; J1265; J1644; J1815; J2001; J2250; J2270; J2370; J2440; J2704; J2720; J3010; J3370; J3475; J3490; J7070; J7620; P9016; P9045; Q9967; S0028

== ENCOUNTER 2020-10-21 09:18 | Outpatient (CLI) | payer OTHER | END 2020-10-21 09:19 | disposition home or self-care (01) | LOC: EKG 09:18 | PROVIDERS: ATTEND Psychiatry & Neurology Neurology | DX: Z02.71 Encounter for disability determination (principal) | CPT/HCPCS: 93005; 93010 ==